=== PATIENT | male | born 1960 | race Caucasian/White ===

== ENCOUNTER → 2019-06-13 | Outpatient (CLI) | payer OTHER ==
[~2019-06-13] VITALS: Ht 188 cm; Wt 75.7 kg
[~2019-06-13] MED LIST: SINCALIDE 1.5 MCG in IV NORMAL SALINE 50ML 30 ML IV ONE
--- NOTE | 2019-06-13 12:51 | RAD ---
EXAM: Abdomen sonogram. HISTORY: Pain. TECHNIQUE: Sonographic imaging of the abdomen was performed. COMPARISON: CT dated 05/19/2019. FINDINGS: The liver is normal in size. No focal hepatic lesion is seen. There is cholelithiasis. The common bile duct is minimally dilated for patient age, measuring 6.6 mm. The right kidney, pancreas and inferior vena cava are unremarkable. IMPRESSION: 1. Minimally dilated common bile duct for patient age. ERCP or MRCP can be performed if there is concern for an occult obstructing etiology. 2. Cholelithiasis. Electronically signed by: Dominique Goddard MD (06/13/2019 12:48 PM) [id number]
--- NOTE | 2019-06-13 13:58 | RAD ---
HEPATOBILIARY SCAN WITH EJECTION FRACTION 06/13/2019 1:54 PM History: Abdominal pain. Procedure: Serial static images are obtained of the liver and biliary system in the frontal projection following IV administration of 5.5 mCi of Technetium 99m Choletec. After filling of the gallbladder, sincalide were infused over 30 minutes and dynamic imaging continued over this period. The gallbladder ejection fraction was calculated. Findings: There is prompt hepatic clearance of tracer from the blood pool. There is homogeneous distribution throughout the liver. The gallbladder ejection fraction measures 19% (normal gallbladder EF is 35% or greater). IMPRESSION: 1. The cystic duct and common bile duct are patent. Negative for acute cholecystitis. 2. The gallbladder ejection fraction is abnormal measuring 19 %. Findings may indicate chronic cholecystitis or gallbladder dyskinesia. Electronically signed by: Derick Mayorga MD (06/13/2019 1:55 PM) [id number]
== END | disposition home or self-care (01) ==
LOC: US 10:02
PROVIDERS: ATTEND Internal Medicine Gastroenterology
DX: K80.20 Calculus of gallbladder without cholecystitis without obstruction (principal); K83.8 Other specified diseases of biliary tract
CPT/HCPCS: 76705; 78227; A9537; J2805